=== PATIENT | female | born 1970 | race Caucasian/White ===

== ENCOUNTER 2018-09-06 14:05 | Observation (INO) | payer BC, SELFPAY ==
[2018-09-06] VITALS (8 sets, daily range): BP systolic 112–160; BP diastolic 77–115; PULSE 69–93; RESP 16–20; TEMP 36.6–36.7; O2SAT 96–100; BMI 21.5; BMI 20.9; BMI 21.0
--- NOTE | 2018-09-06 14:16 | NURSING ---
NO OLD EKGS
--- NOTE | 2018-09-06 15:15 | RAD_ITS ---
STUDY: X-RAY CHEST REASON FOR EXAM: Female, 48 years old. Chest pain. Chest heaviness. TECHNIQUE: Single AP portable view of the chest. COMPARISON: None. FINDINGS: EKG electrodes are seen. Hyperinflation. Scattered calcified granulomas. No acute abnormality is seen. There is no demonstrated pleural abnormality. Normal size heart. Normal mediastinum and isidoro. Normal visualized pulmonary arteries. Normal visualized aortic arch and descending thoracic aorta. Normal visualized thoracic spine. Normal visualized ribs, clavicles, and shoulders. There is no demonstrated abnormality of the visualized soft tissue structures of the upper abdomen. RAD/Chest 1 View (Portable) IMPRESSION: Hyperinflation. Electronically Signed: Jomar Lutz MD at 15:30 EST Tel [phone], Service support ,
--- NOTE | 2018-09-06 15:15 | EKG12_ITS ---
Test Reason : SOB Blood Pressure : / mmHG Vent. Rate : 089 BPM Atrial Rate : 089 BPM P-R Int : 136 ms QRS Dur : 080 ms QT Int : 364 ms P-R-T Axes : 035 018 -09 degrees QTc Int : 442 ms Normal sinus rhythm with sinus arrhythmia Normal ECG Confirmed by THOMPSON MELISSA, DANDY ([id number]), subeditor ADRI ALVARES ([id number] on 09/08/2018 12:03:32 PM Referred By: FORREST Confirmed By:DANDY MACKAY MD
--- NOTE | 2018-09-06 15:21 | ED.DCSUM_ITS ---
- ER Visit Summary Date of Service: 09/06/18 Chief Complaint: Shortness of breath History of Present Illness: The patient is a 48 F presenting with shortness of breath and bilateral chest tightness. She states it is difficult to describe her symptoms. She states she just does not feel right. Symptoms are intermittent. It was worsened with exertion. She states it is hard to get a deep breath. She had recent travel to [place]. No other PE/DVT risk factors. She denies medical problems but has not seen a doctor in over 10 years. She is not a smoker. Denies other complaints. Physical Examination: Blood pressure is 160/115. Patient is afebrile. Alert no acute distress. HEENT exam is unremarkable. Neck is supple. Lungs are clear and equal bilaterally. Heart is regular rate and rhythm. Abdomen is soft nontender nondistended. Extremities are unremarkable. Skin is warm and dry. No focal neurologic deficit. Remainder of exam is unremarkable. Emergency Department Course and Treatment: Patient was given aspirin on arrival. EKG is sinus with T wave inversion in V3 and V4. Chest x-ray shows hyperinflation. CBC, chemistries unremarkable other than sodium 128, BUN 20, creatinine 1.09. D-dimer is negative. Troponin 0.042. On reevaluation, patient is chest pain-free. Discussed with the hospitalist for observation. Disposition: Observation Impression: Chest pain This note was generated with [employer] dictation software. It may contain incorrect words, spelling, and punctuation that were not noted in review of the chart prior to signing ED Disposition - Plan for ED Patient: Chief Complaint: Shortness of Breath
[2018-09-06] MEDS: Aspirin 81 MG TAB.CHEW 324 MG PO (15:39)
[2018-09-06 15:44] LABS: Absolute Lymphocyte Count 2.06 X10^3/ul (0.83-4.51); Basophil# 0.04 X10^3/uL; Basophil% 0.4 % (0-1); Eosinophil# 0.05 X10^3/uL; Eosinophils% 0.5 % (0-5); Hematocrit 45.5 % (37-47); Hemoglobin 15.7 g/dl (12.0-15.0); Lymphocyte # 2.06 X10^3/ul (4.0); Lymphocyte % 20.6 % (19-41); Mean Corp Hgb Conc 34.5 g/gl (32-36); Mean Corpuscular Hgb 29.9 pg (27.0-32.0); Mean Corpuscular Volume 86.7 fL (81-99); Mean Platelet Vol. 11.1 fl (6.2-12.0); Monocyte# 0.85 X10^3/uL; Monocyte% 8.5 % (0-10); Neutrophil % 69.9 % (47-70); Platelet Count 309 K/mm3 (150-450); RBC Distribution Width CV 13.4 % (11.6-14.6); RBC Distribution Width SD 42.2 fl (35.1-43.9); Red Blood Count 5.25 M/mm3 (4.2-5.4)
[2018-09-06 15:45] LABS: POSITIVE COUNT NO; POSITIVE DIFFERENTIAL NO; POSITIVE MORPHOLOGY NO
[2018-09-06 16:03] LABS: D-Dimer Quantitative (DVT/PE) 0.35 FEU/ug/m (0.27-0.49)
[2018-09-06 16:10] LABS: Anion Gap 8 (5-15); BUN 20 mg/dL (7-18); BUN/Creat Ratio 18.3 RATIO (10-20); Calcium,Total 9.6 mg/dL (8.5-10.1); Chloride 93 mmol/L (98-107); Creatinine, Serum 1.09 mg/dL (0.55-1.02); EST Glomerular Filtration Rate 57 mL/min (>60); Est Glom Filt Rate - Afr Amer 69 mL/min (>60); Estimated Creatinine Clearance 60.37 ml/min; Glucose 95 mg/dL (74-106); Potassium 3.9 mmol/L (3.5-5.1); Sodium Level 128 mmol/L (136-145)
--- NOTE | 2018-09-06 16:51 | PCM.HP.STD ---
Problem List (1) Chest pain Status: Acute (2) Hyponatremia Status: Chronic History of Present Illness Date of Admission: 09/06/18 Chief Complaint: chest tightness The patient is a 48 year old F with no pmhx who presents to the ER with complaints of chest tightness. She has had three episodes, once at 10pm last night, this morning, and this afternoon. Each time she was at rest, and it felt like tightness across her chest that made it hard to breathe. It would last for about 15 minutes before spontaneously resolving. She has no pain. She has no dizziness, LH, radiation, nausea. Activity does not make it better or worse. EKG and CXR are neg. Trop neg. She has no smoking hx. Her sister and father have hx htn. She will be admitted for chest pain work up. 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 Denies: Chest Pain, Palpitations Respiratory: Reports: Shortness of Breath. Denies: Cough, Shortness of breath at rest, Sputum production Gastrointestinal: Denies: Abdominal Pain, Nausea, Vomiting Genitourinary: Denies: Dysuria Musculoskeletal: Denies: Joint Pain, Joint Tenderness Skin: Denies: Rash, Wounds Neurological: Denies: Numbness, Tingling, Focal weakness Psychiatric: Denies: Anxiety, Depression, Homicidal Ideations, Suicidal Ideations Hematologic/ Lymphatic: Denies: Easy Bruising, Easy Bleeding VTE Information - Inpt Only VTE Present on Admission: No VTE Mechan Device Prophylaxis: None VTE Pharm Prophylaxis ordered?: No Reason prophylaxis not ordered:: Procedure Not Indicated Patient Problems: Active and Suspected Problems Chest pain (Acute) - Physical Exam General: Alert, Oriented x3, Cooperative HEENT: Atraumatic, PERRLA, EOMI, Normocephalic Neck: Supple, No JVD, Negative Carotid Bruits Lungs: Clear to auscultation, Normal air movement Cardiovascular: Regular rate, No murmurs Abdomen: Bowel Sounds Present, Soft, Non Tender Extremities: No edema, Capillary Refill Less than 3 Seconds Skin: No rashes, No breakdown Musculoskeletal: No Tenderness to Palpation of Joints or Extremities Neurological: Cranial nerves II-XII grossly intact Psych/Mental Status: Normal Affect, Appropriate Vital Signs Temp Pulse Resp BP Pulse Ox 98.1 F 93 20 H 136/98 H 98 09/06/18 14:06 09/06/18 16:00 09/06/18 16:00 09/06/18 16:00 09/06/18 16:00 Oxygen Delivery Method Room Air Weight: 133 lb 9.602 oz Body Mass Index (BMI) 21.5 Laboratory Tests Past 24 Hrs 09/06/18 09/06/18 09/06/18 15:30 15:30 15:30 WBC 10.0 RBC 5.25 Hgb 15.7 H Hct 45.5 MCV 86.7 MCH 29.9 MCHC 34.5 RDW 13.4 RDW Differential 42.2 Plt Count 309 MPV 11.1 Immature Gran % (Auto) 0.100 Neut % (Auto) 69.9 Lymph % (Auto) 20.6 [place] % (Auto) 8.5 Eos % (Auto) 0.5 Baso % (Auto) 0.4 Absolute Neuts (auto) 7.0 Absolute Lymphs (auto) 2.06 Total Counted Not Reportable D-Dimer Quant (PE/DVT) 0.35 Sodium 128 L Potassium 3.9 Chloride 93 L Carbon Dioxide 27.0 Anion Gap 8 BUN 20 H Creatinine 1.09 H Estim Creat Clear Calc 60.37 Est GFR (MDRD) Af Amer 69 Est GFR (MDRD) Non-Af 57 L BUN/Creatinine Ratio 18.3 Glucose 95 Calcium 9.6 Troponin I 0.042 Assessment/Plan All Active Problems Chest pain (Acute) 1. Chest tightness - ekg, cxr, trop neg. D dimer negative. BP mildly elevated. Fm Hx HTN. Admit to PCU, cycle enzymes, stress test when available. 2. Hyponatremia with elevated BUN and Cr (mild) - suspect dehydrated. recheck in am. DVT ppx: early ambulation This patient was seen by Stanley Gabriel PA-C under the supervision of Doctor Leonela.
--- NOTE | 2018-09-06 17:02 | NURSING ---
PCU CHEST TIGHTNESS TERELETSKY
[2018-09-06] MEDS: Acetaminophen 325 MG Tablet 650 MG PO (18:29)
[2018-09-06] MEDS: Ibuprofen 600 MG Tablet PO (22:36)
[2018-09-07 03:00] VITALS: PULSE 58
[2018-09-07 03:04] VITALS: BP 100/73; PULSE 65; RESP 18; TEMP 36.9; O2SAT 97
--- NOTE | 2018-09-07 05:55 | EKG12_ITS ---
Test Reason : MORNING EKG Blood Pressure : / mmHG Vent. Rate : 059 BPM Atrial Rate : 059 BPM P-R Int : 162 ms QRS Dur : 082 ms QT Int : 448 ms P-R-T Axes : -08 056 032 degrees QTc Int : 443 ms Sinus bradycardia Otherwise normal ECG When compared with ECG of 06-SEP-2018 14:13, MANUAL COMPARISON REQUIRED, DATA IS UNCONFIRMED Confirmed by THOMPSON MELISSA, DANDY ([id number]), editorial clerk VANESSA COOL ([id number]) on 09/11/2018 2:27:51 PM Referred By: LANE Confirmed By:DANDY MACKAY MD
[2018-09-07 06:58] VITALS: PULSE 62
[2018-09-07 07:12] LABS: Anion Gap 14 (5-15); BUN 16 mg/dL (7-18); BUN/Creat Ratio 16.6 RATIO (10-20); Calcium,Total 8.8 mg/dL (8.5-10.1); Chloride 96 mmol/L (98-107); Cholesterol 145 mg/dL (200); Creatinine, Serum 0.96 mg/dL (0.55-1.02); EST Glomerular Filtration Rate 66 mL/min (>60); Est Glom Filt Rate - Afr Amer 80 mL/min (>60); Estimated Creatinine Clearance 68.27 ml/min; Glucose 86 mg/dL (74-106); High Density Lipoprotein 80 mg/dL; Potassium 3.2 mmol/L (3.5-5.1); Sodium Level 134 mmol/L (136-145); Triglycerides 76 mg/dL; Very Low Density Lipoprotein 15 mg/dL (5-40)
[2018-09-07 09:04] VITALS: BP 109/79; PULSE 75; RESP 16; TEMP 36.4; O2SAT 98
[2018-09-07 10:49] VITALS: PULSE 60
--- NOTE | 2018-09-07 11:22 | PCM.DC ---
- Discharge Diagnoses Current Active Problems: Current Active and Chronic Problems Chest pain (Acute) Hyponatremia (Chronic) You will use the following diet at home:: No restrictions, Other - you were somewhat dehydrated at admission and the sodium was a little low. Make sure to drink enough fluids to keep your urine a pale yellow.....anay when working out. Gatorade has Electrolytes and will help with the sodium and the potassium, anay when you are working out. Your liquids should be the consistency of: Regular/Thin Discharge Activity: Return to Normal Activity Return to work on:: 09/08/18 May resume sexual activity in: No Restrictions Call your doctor if you observe: Fever of 101 or Higher, Shortness of breath, Dizziness, Fainting spells, Chest pain, Increased palpitations (irregular heartbeat), Calf discomfort Additional Instructions: I cannot tell you with any certainty why you experience the chest discomfort you had. Your workup for cardiac disease has been negative. There was no evidence of any significant rhythm problem on the cardiac rehab nurse. You are not diabetic, have no hypertension, do not smoke and have no history of coronary artery disease in your family so it is unlikely that you have coronary disease. You work out regularly and have never had chest discomfort in the past. You lab shows that you were somewhat dehydrated at admission and the sodium and potassium were low......this may be due to excessive sweating in the gym. Make sure to stay well hydrated. I think EVERYONE should have a primary care doctor because preventive medicine is very important and it is good to establish a relationship with a primary care doctor in the event that you get sick and need to see a doctor. I am referring you to Dr. Malagon and I recommend you follow-up with her next week to have your sodium, potassium and kidney function rechecked. If you have recurrent chest discomfort, sudden onset of shortness of breath, racing heart, skipping beats please return to the emergency room and at that time we will admit you for a stress test. Allergies/Adverse Reactions: Allergies No Known Allergies Allergy (Verified 09/06/18 14:09) Medications to take at Discharge Acetaminophen [Tylenol Tablet] 650 mg PO Q6H PRN PRN tablet 09/07/18 Primary Care Physician: Care Physician,No Primary [Primary Care Provider] - Test Results: Test results from this visit will be discussed in further detail at your follow-up appointment, if applicable. Please Follow Up With: Aneta Malagon MD When: next week Proposed Discharge Date: 09/07/18
--- NOTE | 2018-09-07 11:29 | DCINST_ITS ---
- Discharge Diagnoses Current Active Problems: Current Active and Chronic Problems Chest pain (Acute) Hyponatremia (Chronic) You will use the following diet at home:: No restrictions, Other - you were somewhat dehydrated at admission and the sodium was a little low. Make sure to drink enough fluids to keep your urine a pale yellow.....anay when working out. Gatorade has Electrolytes and will help with the sodium and the potassium, anay when you are working out. Your liquids should be the consistency of: Regular/Thin Discharge Activity: Return to Normal Activity Return to work on:: 09/08/18 May resume sexual activity in: No Restrictions Call your doctor if you observe: Fever of 101 or Higher, Shortness of breath, Dizziness, Fainting spells, Chest pain, Increased palpitations (irregular heartbeat), Calf discomfort Additional Instructions: I cannot tell you with any certainty why you experience the chest discomfort you had. Your workup for cardiac disease has been negative. There was no evidence of any significant rhythm problem on the cardiac/vascular sonographer. You are not diabetic, have no hypertension, do not smoke and have no history of coronary artery disease in your family so it is unlikely that you have coronary disease. You work out regularly and have never had chest discomfort in the past. You lab shows that you were somewhat dehydrated at admission and the sodium and potassium were low......this may be due to excessive sweating in the gym. Make sure to stay well hydrated. I think EVERYONE should have a primary care doctor because preventive medicine is very important and it is good to establish a relationship with a primary care doctor in the event that you get sick and need to see a doctor. I am referring you to Dr. Malagon and I recommend you follow-up with her next week to have your sodium, potassium and kidney function rechecked. If you have recurrent chest discomfort, sudden onset of shortness of breath, racing heart, skipping beats please return to the emergency room and at that time we will admit you for a stress test. Allergies/Adverse Reactions: Allergies No Known Allergies Allergy (Verified 09/06/18 14:09) Medications to take at Discharge Acetaminophen [Tylenol Tablet] 650 mg PO Q6H PRN PRN tablet 09/07/18 Primary Care Physician: Care Physician,No Primary [Primary Care Provider] - Test Results: Test results from this visit will be discussed in further detail at your follow- up appointment, if applicable. Please Follow Up With: Aneta Malagon MD When: next week Proposed Discharge Date: 09/07/18
--- NOTE | 2018-09-07 11:36 | DS.PCM_ITS ---
Discharge Date and Diagnosis - Problem List Patient Problems: Active and Suspected Problems Hyperinflation of lungs (Acute) Hypokalemia (Acute) Date of Admission: 09/06/18 Date of Discharge: 09/07/18 - Primary Discharge Diagnosis Active and Suspected Problems Hypokalemia (Acute) Atypical Chest pain (Acute) Hyponatremia (Acute) - Secondary Discharge Diagnosis none Hospital Course and Treatment Imaging Results: Laboratory Tests 09/07/18 09/06/18 09/06/18 Range/Units 05:52 21:55 18:30 WBC (4.4-11.0) K/mm3 RBC (4.2-5.4) M/mm3 Hgb (12.0-15.0) g/dl Hct (37-47) % MCV (81-99) fL MCH (27.0-32.0) pg MCHC (32-36) g/gl RDW (11.6-14.6) % RDW Differential (35.1-43.9) fl Plt Count (150-450) K/mm3 MPV (6.2-12.0) fl Immature Gran % (Auto) (0.0-0.9) % Neut % (Auto) (47-70) % Lymph % (Auto) (19-41) % [place] % (Auto) (0-10) % Eos % (Auto) (0-5) % Baso % (Auto) (0-1) % Absolute Neuts (auto) (2.0-7.7) X10^3/uL Absolute Lymphs (auto) (0.83-4.51) X10^3/ul Total Counted D-Dimer Quant (PE/DVT) (0.27-0.49) FEU/ug/m Sodium 134 L (136-145) mmol/L Potassium 3.2 L (3.5-5.1) mmol/L Chloride 96 L (98-107) mmol/L Carbon Dioxide 24.0 (21.0-32.0) mmol/L Anion Gap 14 (5-15) BUN 16 (7-18) mg/dL Creatinine 0.96 (0.55-1.02) mg/dL Estim Creat Clear Calc 68.27 ml/min Est GFR (MDRD) Af Amer 80 (>60) mL/min Est GFR (MDRD) Non-Af 66 (>60) mL/min BUN/Creatinine Ratio 16.6 (10-20) RATIO Glucose 86 (74-106) mg/dL Calcium 8.8 (8.5-10.1) mg/dL Troponin I 0.045 0.040 (<0.045) ng/mL Triglycerides 76 ( - 199) mg/dL Cholesterol 145 (200) mg/dL LDL Cholesterol 50 (0-130) mg/dL VLDL Cholesterol 15 (5-40) mg/dL HDL Cholesterol 80 (40 - ) mg/dL 09/06/18 09/06/18 09/06/18 Range/Units 15:30 15:30 15:30 WBC 10.0 (4.4-11.0) K/mm3 RBC 5.25 (4.2-5.4) M/mm3 Hgb 15.7 H (12.0-15.0) g/dl Hct 45.5 (37-47) % MCV 86.7 (81-99) fL MCH 29.9 (27.0-32.0) pg MCHC 34.5 (32-36) g/gl RDW 13.4 (11.6-14.6) % RDW Differential 42.2 (35.1-43.9) fl Plt Count 309 (150-450) K/mm3 MPV 11.1 (6.2-12.0) fl Immature Gran % (Auto) 0.100 (0.0-0.9) % Neut % (Auto) 69.9 (47-70) % Lymph % (Auto) 20.6 (19-41) % [place] % (Auto) 8.5 (0-10) % Eos % (Auto) 0.5 (0-5) % Baso % (Auto) 0.4 (0-1) % Absolute Neuts (auto) 7.0 (2.0-7.7) X10^3/uL Absolute Lymphs (auto) 2.06 (0.83-4.51) X10^3/ul Total Counted Not Reportable D-Dimer Quant (PE/DVT) 0.35 (0.27-0.49) FEU/ug/m Sodium 128 L (136-145) mmol/L Potassium 3.9 (3.5-5.1) mmol/L Chloride 93 L (98-107) mmol/L Carbon Dioxide 27.0 (21.0-32.0) mmol/L Anion Gap 8 (5-15) BUN 20 H (7-18) mg/dL Creatinine 1.09 H (0.55-1.02) mg/dL Estim Creat Clear Calc 60.37 ml/min Est GFR (MDRD) Af Amer 69 (>60) mL/min Est GFR (MDRD) Non-Af 57 L (>60) mL/min BUN/Creatinine Ratio 18.3 (10-20) RATIO Glucose 95 (74-106) mg/dL Calcium 9.6 (8.5-10.1) mg/dL Troponin I 0.042 (<0.045) ng/mL Triglycerides ( - 199) mg/dL Cholesterol (200) mg/dL LDL Cholesterol (0-130) mg/dL VLDL Cholesterol (5-40) mg/dL HDL Cholesterol (40 - ) mg/dL Clinical Impression(s) from Imaging Studies Chest X-Ray 09/06/18 15:15 IMPRESSION: Hyperinflation. Electronically Signed: Jomar Lutz MD at 15:30 EST Tel [phone], Service support , None Operations: None Procedures: None Summary of Care Provided: The patient is a 48 year old F who presented to the emergency department at [facility] on 09/06/2018 complaining of chest discomfort and inability to take a deep breath. These episodes were recurrent and happened at rest and with exercise. There was no radiation to the arms neck or back. EKG in the emergency room showed normal sinus rhythm with no ischemic changes. Chest x-ray was unremarkable. D-dimer was normal. Significant lab included an elevated BUN of 20, creatinine of 1.09 and the sodium of 128. Troponin was within normal limits. She was admitted to a monitored bed on the progressive care unit and serial cardiac enzymes were negative. Telemetry showed normal sinus rhythm with no significant ectopy. Patient had no recurrence of her symptoms following admission to the hospital. She has no family history of heart disease. Personal history is negative for diabetes, hypertension, hyperlipidemia and nicotine dependence. On 09/07/2018 she was asymptomatic and felt comfortable going home. She was instructed to return to the emergency room should the chest pain recurred and at that point she would be admitted for a stress test. She was instructed to follow-up with a primary care physician and was given suggestions for local physicians to follow-up with. Patient Problems: Active and Suspected Problems Hyperinflation of lungs (Acute) Hypokalemia (Acute) Objective: PHYSICAL EXAM: GENERAL: alert, oriented X 3, Cooperative, NAD, does not appear anxious ORAL: moist mucosa, no mucosal lesions NECK: No JVD, supple, trachea midline LUNGS: CTA, symmetric chest expansion HEART: RRR, Normal S1 and S2, no rub, no gallop, no MM ABDOMEN: soft, NT, ND, BS present, no guarding with palpation EXTREMITIES: no edema, no cyanosis, no calf tenderness SKIN: No rashes, no breakdown NEUROLOGIC: no focal neurologic deficits PSYCH: appropriate, normal affect, pleasant denies SOB, chest pain, palpitations Telemetry with no significant dysrhythmia....there is a low of interference non-smoker, no FH CAD, no personal or family hx asthma, denies wheezing, no hx VTE asymptomatic at DS denies laxatives, diuretics, works out regularly - Physical Exam Vital Signs Temp Pulse Resp BP Pulse Ox 97.5 F L 75 16 109/79 98 09/07/18 09:04 09/07/18 09:04 09/07/18 09:04 09/07/18 09:04 09/07/18 09:04 Oxygen Delivery Method Room Air Weight: 130 lb 3.2 oz Body Mass Index (BMI) 20.9 Intake and Output for Last 24 Hours 09/05/18 09/06/18 09/07/18 23:59 23:59 23:59 Intake Total 100 / 100 100 / 100 Balance 100 / 100 100 / 100 Laboratory Tests Past 24 Hrs 09/06/18 09/06/18 09/06/18 15:30 15:30 15:30 WBC 10.0 RBC 5.25 Hgb 15.7 H Hct 45.5 MCV 86.7 MCH 29.9 MCHC 34.5 RDW 13.4 RDW Differential 42.2 Plt Count 309 MPV 11.1 Immature Gran % (Auto) 0.100 Neut % (Auto) 69.9 Lymph % (Auto) 20.6 [place] % (Auto) 8.5 Eos % (Auto) 0.5 Baso % (Auto) 0.4 Absolute Neuts (auto) 7.0 Absolute Lymphs (auto) 2.06 Total Counted Not Reportable D-Dimer Quant (PE/DVT) 0.35 Sodium 128 L Potassium 3.9 Chloride 93 L Carbon Dioxide 27.0 Anion Gap 8 BUN 20 H Creatinine 1.09 H Estim Creat Clear Calc 60.37 Est GFR (MDRD) Af Amer 69 Est GFR (MDRD) Non-Af 57 L BUN/Creatinine Ratio 18.3 Glucose 95 Calcium 9.6 Troponin I 0.042 Triglycerides Cholesterol LDL Cholesterol VLDL Cholesterol HDL Cholesterol 09/06/18 09/06/18 09/07/18 18:30 21:55 05:52 WBC RBC Hgb Hct MCV MCH MCHC RDW RDW Differential Plt Count MPV Immature Gran % (Auto) Neut % (Auto) Lymph % (Auto) [place] % (Auto) Eos % (Auto) Baso % (Auto) Absolute Neuts (auto) Absolute Lymphs (auto) Total Counted D-Dimer Quant (PE/DVT) Sodium 134 L Potassium 3.2 L Chloride 96 L Carbon Dioxide 24.0 Anion Gap 14 BUN 16 Creatinine 0.96 Estim Creat Clear Calc 68.27 Est GFR (MDRD) Af Amer 80 Est GFR (MDRD) Non-Af 66 BUN/Creatinine Ratio 16.6 Glucose 86 Calcium 8.8 Troponin I 0.040 0.045 Triglycerides 76 Cholesterol 145 LDL Cholesterol 50 VLDL Cholesterol 15 HDL Cholesterol 80 Discharge Activity: Return to Normal Activity Return to work on:: 09/08/18 May resume sexual activity in: No Restrictions Call your doctor if you observe: Fever of 101 or Higher, Shortness of breath, Dizziness, Fainting spells, Chest pain, Increased palpitations (irregular heartbeat), Calf discomfort Home Medications: Medications to take at Discharge RX: Acetaminophen [Tylenol Tablet] 650 mg PO Q6H PRN PRN tablet 09/07/18 Primary Care Physician: Care Physician,No Primary [Primary Care Provider] - Please Follow Up With: Aneta Malagon MD When: next week Medical Necessity - Tobacco Use Smoking Status: Never smoker Meaningful Use Info Meaningful Use Diagnoses (Choose all that apply): None applicable Code Visit OBSV E&M: 25747 Observation care discharge
== END 2018-09-07 11:30 | disposition home or self-care (01) ==
LOC: ED 15:03 → PCU 17:10
PROVIDERS: Admitting Provider Internal Medicine; Emergency Provider Emergency Medicine; Visit Provider Internal Medicine
DX: R07.89 Other chest pain (principal); E87.6 Hypokalemia; E87.1 Hypo-osmolality and hyponatremia
CPT/HCPCS: 36415; 71045; 80048; 80061; 84484; 85025; 85379; 93005; 99218; 99283; A4216; G0378